=== PATIENT | male | born 1995 | race American Indian/Alaskan Native ===

== ENCOUNTER 2019-09-12 18:23 | Emergency (ER) | payer SELFPAY ==
[2019-09-12] MEDS ORDERED: HYDROcodone/ACETAMINOPHEN 5-325 MG TAB PO STA (20:30)
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
[2019-09-12 22:05] VITALS: BP 122/77
== END 2019-09-12 22:00 | disposition home or self-care (01) ==
LOC: ED 18:23
DX: M54.5 Low back pain (principal); V89.2XXA Person injured in unspecified motor-vehicle accident, traffic, initial encounter; Y93.89 Activity, other specified; Y92.410 Unspecified street and highway as the place of occurrence of the external cause; Y99.8 Other external cause status
CPT/HCPCS: 72100; 99283

== ENCOUNTER 2020-03-25 12:25 | Emergency (ER) | payer SELFPAY ==
[2020-03-25 12:41] VITALS: BP 117/73
--- NOTE | 2020-03-25 14:39 | Event Note ---
ED Screening Note ED Screening Note: states he began having N/V that began this morning no diarrhea states he drank ETOH last night no fever traveled from [place] this morning PMHx none no allergies to meds This initial assessment/diagnostic orders/clinical plan/treatment(s) is/are subject to change based on patients health status, clinical progression and re- assessment by fellow clinical providers in the ED. Further treatment and workup at subsequent clinical providers discretion. Patient/guardian urged not to elope from the ED as their condition may be serious if not clinically assessed and managed. Initial orders include: labs
== END 2020-03-25 14:55 | disposition left against medical advice (07) ==
LOC: ED 12:25
DX: R11.2 Nausea with vomiting, unspecified (principal); Z53.21 Procedure and treatment not carried out due to patient leaving prior to being seen by health care provider

== ENCOUNTER 2020-10-08 15:25 | Emergency (ER) | payer SELFPAY ==
[2020-10-08 16:32] VITALS: BP 116/73
[2020-10-08 17:30] LABS: Bilirubin,Urine NEG (Negative); Blood,Urine NEG (Negative); Color,Urine Yellow (Yellow); Protein,Urine <15 mg/dL mg/dL (Negative); Urobilinogen,Urine < 2.0 mg/dL (<2.0)
[2020-10-08] MEDS ORDERED: LIDOCAINE-MPF (1%) 10 MG/1 ML VIAL 5 ML INFILTRATI ONE (17:34)
--- NOTE | 2020-10-08 17:38 | Emergency Department Report ---
ED General Adult HPI - General Chief complaint: Extremity Problem,Nontraumatic Stated complaint: PELVIC PAIN Time Seen by Provider: 10/08/20 16:59 Source: patient Mode of arrival: Ambulatory Limitations: No Limitations - History of Present Illness Initial comments: Patient is a 25-year-old male presents emergency room complaints of suprapubic abdominal pain that began 2 weeks ago. Patient states that he has painful intercourse. He states occasionally he feels dysuria. He denies any penile discharge, pain or swelling in the testicles, fever, nausea, vomiting, diarrhea, urinary retention, hematuria, back pain. He states he is sexually active without protection. He states he has an STD history which he reports he was treated for last year he states that he had gonorrhea at that time. He denies any medication allergies. - Related Data Previous Rx's Medication Instructions Recorded Last Taken Type Ketorolac [Toradol] 10 mg PO Q6H PRN #15 tablet 09/12/19 Unknown Rx methOCARBAMOL [Robaxin TAB] 750 mg PO Q8H PRN #14 tablet 09/12/19 Unknown Rx Doxycycline Hyclate [Doxycycline 100 mg PO BID 7 Days #14 tab 10/08/20 Unknown Rx Hyclate TAB] Allergies Allergy/AdvReac Type Severity Reaction Status Date / Time No Known Allergies Allergy Unverified 09/12/19 18:29 ED Review of Systems ROS: Stated complaint: PELVIC PAIN Other details as noted in HPI Comment: All other systems reviewed and negative ED Past Medical Hx - Past Medical History Previous Medical History?: No - Surgical History Past Surgical History?: No - Social History Smoking Status: Current Every Day Smoker Substance Use Type: None - Medications Home Medications: Home Medications Medication Instructions Recorded Confirmed Last Taken Type Ketorolac [Toradol] 10 mg PO Q6H PRN #15 tablet 09/12/19 Unknown Rx methOCARBAMOL [Robaxin TAB] 750 mg PO Q8H PRN #14 tablet 09/12/19 Unknown Rx Doxycycline Hyclate [Doxycycline 100 mg PO BID 7 Days #14 tab 10/08/20 Unknown Rx Hyclate TAB] ED Physical Exam - General Limitations: No Limitations General appearance: alert, in no apparent distress - Head Head exam: Present: atraumatic, normocephalic - Eye Eye exam: Present: normal appearance - ENT ENT exam: Present: mucous membranes moist - Respiratory Respiratory exam: Present: normal lung sounds bilaterally. Absent: respiratory distress, wheezes, rales, rhonchi, stridor, chest wall tenderness, accessory muscle use, decreased breath sounds, prolonged expiratory - Cardiovascular Cardiovascular Exam: Present: regular rate, normal rhythm, normal heart sounds. Absent: systolic murmur, diastolic murmur, rubs, gallop - GI/Abdominal GI/Abdominal exam: Present: soft. 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 Absent: testicular tenderness, urethral discharge, scrotal swelling External exam: Present: normal external exam. Absent: erythema, swelling, lesions, lacerations, ecchymosis, bleeding - Neurological Exam Neurological exam: Present: alert, oriented X3 - Psychiatric Psychiatric exam: Present: normal affect, normal mood - Skin Skin exam: Present: warm, dry, intact ED Course Vital Signs 10/08/20 16:30 Temperature 98.2 F Pulse Rate 86 Respiratory 12 Rate Blood Pressure 116/73 O2 Sat by Pulse 99 Oximetry ED Medical Decision Making - Lab Data Lab Results 10/08/20 Range/Units 17:05 Urine Color Yellow (Yellow) Urine Turbidity Clear (Clear) Urine pH 6.0 (5.0-7.0) Ur Specific [place] 1.020 (1.003-1.030) Urine Protein <15 mg/dl (Negative) mg/dL Urine Glucose (UA) Neg (Negative) mg/dL Urine Ketones Neg (Negative) mg/dL Urine Blood Neg (Negative) Urine Nitrite Neg (Negative) Urine Bilirubin Neg (Negative) Urine Urobilinogen < 2.0 (<2.0) mg/dL Ur Leukocyte Esterase Neg (Negative) Urine WBC (Auto) 2.0 (0.0-6.0) /HPF Urine RBC (Auto) 2.0 (0.0-6.0) /HPF U Epithel Cells (Auto) 1.0 (0-13.0) /HPF - Medical Decision Making Patient is a 25-year-old male presents emergency room complaints of suprapubic abdominal pain that began 2 weeks ago. Patient states that he has painful intercourse. He states occasionally he feels dysuria. He denies any penile discharge, pain or swelling in the testicles, fever, nausea, vomiting, diarrhea, urinary retention, hematuria, back pain. He states he is sexually active without protection. He states he has an STD history which he reports he was treated for last year he states that he had gonorrhea at that time. He denies any medication allergies. 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 UA is within normal limits. G/C sent from patient's urine. Offered patient prophylactic treatment. Patient given ceftriaxone IM on the emergency department. Patient given prescription for doxycycline. Advised patient Please take medication as prescribed to completion. Please have any partner tested and treated as well. Avoid sexual intercourse. Please follow-up with the clinic or the health department in order to receive a full STD panel. Please follow-up with the urologist. Return to emergency room for new or worsened symptoms. Critical care attestation.: If time is entered above; I have spent that time in minutes in the direct care of this critically ill patient, excluding procedure time. ED Disposition Clinical Impression: Suprapubic pain, Dyspareunia, Concern about STD in male without diagnosis Disposition: DC-01 TO HOME OR SELFCARE Is pt being admited?: No Does the pt Need Aspirin: No Condition: Stable Additional Instructions: Please take medication as prescribed to completion. Please have any partner tested and treated as well. Avoid sexual intercourse. Please follow-up with the clinic or the health department in order to receive a full STD panel. Please follow-up with the urologist. Return to emergency room for new or worsened symptoms. Prescriptions: Doxycycline Hyclate [Doxycycline Hyclate TAB] 100 mg PO BID 7 Days #14 tab Referrals: PRIMARY CAREMD [Primary Care Provider] - 3-5 Days [facility] [Outside] - 3-5 Days TWAN ASHLEY MD [Staff Physician] - 3-5 Days Time of Disposition: 17:36 Print Language: FAROESE
== END 2020-10-08 18:00 | disposition home or self-care (01) ==
LOC: ED 15:25
DX: N53.12 Painful ejaculation (principal); R10.30 Lower abdominal pain, unspecified; R30.0 Dysuria; F17.200 Nicotine dependence, unspecified, uncomplicated; Z79.899 Other long term (current) drug therapy
CPT/HCPCS: 81001; 87591; 96372; 99283; J0696

== ENCOUNTER 2020-10-30 15:38 | Emergency (ER) | payer SELFPAY | END 2020-10-30 16:00 | disposition left against medical advice (07) | LOC: ED 15:38 | DX: R42 Dizziness and giddiness (principal); Z53.21 Procedure and treatment not carried out due to patient leaving prior to being seen by health care provider ==

== ENCOUNTER 2020-11-19 21:21 | Emergency (ER) | payer SELFPAY ==
[2020-11-19 23:51] VITALS: BP 129/76
[2020-11-19] MEDS ORDERED: ACETAMINOPHEN 500 MG TAB PO ONE (23:53)
--- NOTE | 2020-11-20 02:24 | Emergency Department Report ---
ED General Adult HPI - General Chief complaint: Fever Stated complaint: LIGHT HEADED/CHILLS/SORE THROAT Time Seen by Provider: 11/20/20 02:10 Source: patient Mode of arrival: Ambulatory Limitations: No Limitations - History of Present Illness Initial comments: 25-year-old male patient presents to the emergency department with complaints of left ear pain, sore throat, myalgias, cough, headache, and nasal congestion for 2 days. No known sick contacts. No current steroid or antibiotic use. No recent travel. Patient has not taken any medications prior to arrival. Patient did not receive his COVID-19 vaccination series. Denies rash, seizure, neck stiffness, vomiting, diarrhea, abdominal pain, syncope. Denies all other complaints at this time. Severity scale (0 -10): 5 - Related Data Previous Rx's Medication Instructions Recorded Last Taken Type Ketorolac [Toradol] 10 mg PO Q6H PRN #15 tablet 09/12/19 Unknown Rx methOCARBAMOL [Robaxin TAB] 750 mg PO Q8H PRN #14 tablet 09/12/19 Unknown Rx Doxycycline Hyclate [Doxycycline 100 mg PO BID 7 Days #14 tab 10/08/20 Unknown Rx Hyclate TAB] Allergies Allergy/AdvReac Type Severity Reaction Status Date / Time No Known Allergies Allergy Unverified 09/12/19 18:29 ED Review of Systems ROS: Stated complaint: LIGHT HEADED/CHILLS/SORE THROAT Other details as noted in HPI Other: GENERAL: Negative for fever, chills, weight change, anorexia, fatigue. ENT: Positive for ear pain, sore throat, nasal congestion. CARDIOVASCULAR: Negative for chest pain, palpitations, lower extremity swelling. PULMONARY: Positive for cough. GASTROINTESTINAL: Negative for abdominal pain, nausea, vomiting, diarrhea, constipation. MUSCULOSKELETAL: Positive for myalgias. NEUROLOGICAL: Positive for headache. INTEGUMENTARY: Negative for erythema, rash, diaphoresis, laceration, ecchymosis. HEMATOLOGICAL: Negative for hemoptysis, hematemesis, hematochezia, hematuria. PSYCHIATRIC: Negative for hallucinations, suicidal ideation, homicidal ideation, anxiety, depression. ED Past Medical Hx - Past Medical History Previous Medical History?: No - Surgical History Past Surgical History?: No - Social History Smoking Status: Current Every Day Smoker Substance Use Type: None - Medications Home Medications: Home Medications Medication Instructions Recorded Confirmed Last Taken Type Ketorolac [Toradol] 10 mg PO Q6H PRN #15 tablet 09/12/19 Unknown Rx methOCARBAMOL [Robaxin TAB] 750 mg PO Q8H PRN #14 tablet 09/12/19 Unknown Rx Doxycycline Hyclate [Doxycycline 100 mg PO BID 7 Days #14 tab 10/08/20 Unknown Rx Hyclate TAB] ED Physical Exam - General Limitations: No Limitations - Other Other exam information: General: Awake and alert. No acute distress. Head: Atraumatic, normocephalic. Eyes: EOMI. Pupils are equal and round. Normal sclera and conjunctiva. ENT: Oral mucosa is moist. Pharyngeal erythema. No tonsillar swelling or exudate. Uvula is midline and nonedematous Neck: Supple. No lymphadenopathy. Pulmonary: No respiratory distress. Clear to auscultation bilaterally. Cardiac: Regular rate and rhythm. Pulses are palpable and equal bilaterally. No lower extremity cyanosis or edema. Skin: Warm and dry. No rashes. Abdomen: Soft, non-tender, non-protuberant. No guarding, rigidity, or rebound. Bowel sounds are normal. No organomegaly or masses noted. Back: Normal alignment. No CVA tenderness. Extremities: Symmetrical. Full range of motion intact. Neurological: Alert and oriented, appropriately interactive, no focal deficits. Psych: Cooperative. Appropriate mood and affect. Speech is evenly metered. Thoughts are logically construed. ED Course Vital Signs 11/19/20 11/20/20 23:49 00:42 Temperature 102.6 F H Pulse Rate 89 Respiratory 16 16 Rate Blood Pressure 129/76 [Right] O2 Sat by Pulse 99 Oximetry ED Medical Decision Making - Medical Decision Making Differential diagnosis including but not limited to: strep pharyngitis, viral ph aryngitis, otitis media, influenza, sinusitis, pneumonia On reevaluation, patient remains stable. Resting comfortably. No hypoxia, no respiratory distress. Rapid strep test is negative. Culture pending. History and exam findings suggestive of viral illness. COVID-19 testing is currently unavailable at this facility. Patient will be discharged home with instructions for symptomatic treatment and referred to primary care provider for close outpatient follow-up. Patient expressed understanding and is agreeable to plan of care. Disease transmission precautions discussed. Strict return precautions provided. Repeat exam is unremarkable and benign. History, exam, diagnostic testing, and current condition do not suggest worrisome pathology to warrant further testing, continued ED treatment, admission, or surgical evaluation at this point. Given the low probability of a significant medical illness, it would be more likely to result in harm than benefit to perform further testing at this stage. Discussed findings, presumptive diagnosis, need for follow-up and specific signs/symptoms that should prompt immediate return to the emergency department. Instructions were explained in detail to the patient in addition to giving written discharge information. Patient expressed understanding and was given the opportunity to ask questions, all of which were satisfactorily answered prior to discharge home. Critical care attestation.: If time is entered above; I have spent that time in minutes in the direct care of this critically ill patient, excluding procedure time. ED Disposition Clinical Impression: Viral illness Disposition: TO HOME OR SELFCARE Is pt being admited?: No Does the pt Need Aspirin: No Condition: Stable Instructions: Viral Illness, Adult Additional Instructions: Take Tylenol every 4 hours and Motrin every 8 hours as needed for pain. Rest. Drink plenty of fluids. Wash hands frequently to prevent disease transmission. Do not share food or drinks with others. Follow-up with primary care provider this week. Call today to schedule an appointment. See referral information below. Return to the emergency department immediately for new or worsening symptoms. Referrals: BREANNA TORRES MD [Staff Physician] - 3-5 Days [facility] [Provider Group] - 3-5 Days Forms: Work/School Release Form(ED) Time of Disposition: 03:45
== END 2020-11-20 03:45 | disposition home or self-care (01) ==
LOC: ED 21:21
DX: B34.9 Viral infection, unspecified (principal); F17.200 Nicotine dependence, unspecified, uncomplicated; Z79.899 Other long term (current) drug therapy
CPT/HCPCS: 87116; 87430